=== PATIENT | female | born 1945 | race Caucasian/White ===

== ENCOUNTER 2020-05-04 16:26 | Emergency (ER) | payer MEDICARE ==
[~2020-05-04] VITALS: Ht 154.9 cm; Wt 66.2 kg
[2020-05-04] MEDS ORDERED: LIPITOR20 MG PO (16:36)
[2020-05-04] MEDS ORDERED: LISINOPRIL10 MG PO (16:36)
[2020-05-04] MEDS ORDERED: ATENOLOL25 MG PO (16:37)
[2020-05-04] MEDS ORDERED: LEVOTHYROXINE25 MCG PO (16:37)
[2020-05-04] MEDS ORDERED: ALLOPURINOL100 MG PO (16:37)
--- NOTE | 2020-05-06 09:08 | EKG ---
[facility] [address] [facility] [place], [place] [address] Signed Sinus tachycardia Possible Inferior infarct , age undetermined Abnormal ECG No previous ECGs available Confirmed by WALI SMITH MD ([id number] on 05/06/2020 9:08:23 AM Electronically Signed By: WALI SMITH MD 05/06/20 0908 PATIENT NAME: MELANI BASS Electrocardiogram DATE OF : 43 PHYSICIAN: WALI SMITH MD REPORT #: [id number] REPORT IS CONFIDENTIAL AND NOT TO BE RELEASED WITHOUT AUTHORIZATION
== END 2020-05-04 18:09 | disposition home or self-care (01) ==
LOC: ED 16:26
DX: R42 Dizziness and giddiness (principal); R55 Syncope and collapse; I10 Essential (primary) hypertension; Z79.899 Other long term (current) drug therapy
CPT/HCPCS: 93005; 93010; 99284-25; J7121